=== PATIENT | female | born 1975 | race Caucasian/White ===

== ENCOUNTER → 2020-12-28 | Outpatient (CLI) | payer MEDICARE, OTHER ==
[~2020-12-28] MED LIST: IBUPROFEN600 MG PO
== END ==
LOC: US 09:27
DX: K76.0 Fatty (change of) liver, not elsewhere classified (principal)
CPT/HCPCS: 76705

== ENCOUNTER → 2021-06-04 | Outpatient (CLI) | payer MEDICARE, OTHER | LOC: KOH-I 13:00 | DX: R10.9 Unspecified abdominal pain (principal) | CPT/HCPCS: 76775 ==

== ENCOUNTER → 2021-10-14 | Outpatient (CLI) | payer MEDICARE, OTHER | LOC: KOH-I 10:36 | DX: M25.572 Pain in left ankle and joints of left foot (principal); M79.672 Pain in left foot; M25.562 Pain in left knee | CPT/HCPCS: 73562; 73610; 73630 ==